=== PATIENT | male | born 1995 | race Caucasian/White ===

== ENCOUNTER 2022-12-16 23:01 | Inpatient (IN) | payer MEDICAID ==
[~2022-12-16] VITALS: Ht 200.7 cm; Wt 86.2 kg
[2022-12-17 00:36] LABS: ANION GAP 16 mmol/L (8-16); CALCIUM, TOTAL 8.8 mg/dL (8.8-10.5); CARBON DIOXIDE 26 mmol/L (22-29); CHLORIDE 105 mmol/L (98-107); CREATININE 1.12 mg/dL (0.60-1.30); GLOMERULAR FILTR. RATE CALC > 60 mL/min (>60); GLUCOSE,RANDOM 99 mg/dL (70-110); POTASSIUM 3.6 mmol/L (3.5-5.1); SODIUM SERUM 147 mmol/L (136-145)
[2022-12-17 00:37] LABS: BASOPHILS % (AUTO) 0.8 % (0.0-2.0); EOSINOPHILS % (AUTO) 1.5 % (1.0-6.0); HEMATOCRIT 43.9 % (41-53); LYMPHOCYTES # (AUTO) 1.7 K/uL (1.0-4.8); LYMPHOCYTES % (AUTO) 32.3 % (22.0-44.0); MEAN CORPUSCULAR HEMOGLOBIN 31.5 pg (26.0-34.0); MEAN CORPUSCULAR HGB CONC 34.1 G/dL (31.0-37.0); MEAN CORPUSCULAR VOLUME 92 fL (80-100); MONOCYTES # (AUTO) 0.5 K/uL (0.1-1.0); MONOCYTES % (AUTO) 10.3 % (2.0-9.0); NEUTROPHILS # (AUTO) 2.9 K/uL (1.8-7.7); NEUTROPHILS % (AUTO) 55.1 % (40.0-70.0); PLATELET COUNT (AUTO) 232 K/uL (150-450); RED BLOOD CELL COUNT(AUTO) 4.75 MIL/uL (4.50-5.90); RED CELL DISTRIBUTION WIDTH 14.6 % (11.5-14.5)
[2022-12-17 00:42] LABS: ALANINE AMINOTRANSFERASE 30 U/L (12-78); ALBUMIN 4.2 g/dL (3.4-5.0); ALKALINE PHOSPHATASE 45 U/L (46-116); ASPARTATE AMINOTRANSFERASE 28 U/L (15-37); BILIRUBIN,TOTAL 0.4 mg/dL (0.1-1.0); TOTAL PROTEIN, SERUM 7.8 g/dL (6.4-8.2)
[2022-12-17] MEDS ORDERED: HALOPERIDOL 5 MG TABLET PO PRN (01:45)
[2022-12-17 06:11] LABS: APPEARANCE,URINE CLEAR (CLEAR); BILIRUBIN,URINE NEGATIVE (NEGATIVE); GLUCOSE, URINE (UA) NEGATIVE (NEGATIVE); KETONES,URINE NEGATIVE (NEGATIVE); LEUKOCYTE ESTERASE ,URINE NEGATIVE (NEGATIVE); NITRATE,URINE NEGATIVE (NEGATIVE); OCCULT BLOOD,URINE NEGATIVE (NEGATIVE); SPECIFIC GRAVITIY, URINE 1.018 (1.003-1.030); UROBILINOGEN,URINE <=1.0 mg/dL (<=1.0)
[2022-12-17 06:14] LABS: PROTEIN,URINE NEGATIVE (NEGATIVE)
[2022-12-17 06:31] LABS: AMPHET/METH SCREEN,URINE NEGATIVE (NEGATIVE); BARBITURATE SCREEN, URINE NEGATIVE (NEGATIVE); BENZODIAZEPINES SCREEN,URINE NEGATIVE (NEGATIVE); CANNABINOID SCREEN,URINE POSITIVE (NEGATIVE); COCAINE SCREEN,URINE NEGATIVE (NEGATIVE); METHADONE SCREEN, URINE NEGATIVE (NEGATIVE); OPIATE SCREEN,URINE NEGATIVE (NEGATIVE); PHENCYCLIDINE SCREEN,URINE NEGATIVE (NEGATIVE)
[2022-12-17 11:45] LABS: COVID AG,FIA SOURCE NASAL SWAB
[2022-12-17 15:07] VITALS: BP 141/92; PULSE 88; RESP 18; TEMP 98; O2SAT 98
[2022-12-17] MEDS: LORazepam 1 MG TABLET PO PRN ×2 (15:37→21:00)
[2022-12-17 20:20] VITALS: BP 128/75; PULSE 94; RESP 18; TEMP 97.5; O2SAT 96
[2022-12-17] MEDS: ZOLPIDEM TARTRATE 10 MG TABLET PO PRN (21:00)
[2022-12-18 08:45] VITALS: BP 148/98; PULSE 91; RESP 19; TEMP 97.6; O2SAT 93
[2022-12-18] MEDS: LORazepam 1 MG TABLET PO PRN (09:11)
[2022-12-18] MEDS: SERTRALINE HCL 50 MG TABLET PO SCH (15:02)
[2022-12-18] MEDS: LORazepam 2 MG TABLET PO PRN (15:53)
[2022-12-18 20:20] VITALS: BP 131/82; PULSE 85; RESP 18; TEMP 97.6; O2SAT 97
[2022-12-18] MEDS: ZOLPIDEM TARTRATE 10 MG TABLET PO PRN (21:44)
[2022-12-19] MEDS: SERTRALINE HCL 50 MG TABLET PO SCH (08:17)
[2022-12-19 08:26] VITALS: BP 132/85; PULSE 92; RESP 18; TEMP 98; O2SAT 96
[2022-12-19] MEDS: LORazepam 2 MG TABLET PO PRN ×2 (09:19→20:00)
[2022-12-19 20:54] VITALS: BP 133/87; PULSE 83; RESP 19; TEMP 98.1; O2SAT 96
[2022-12-19] MEDS: ZOLPIDEM TARTRATE 10 MG TABLET PO PRN (21:24)
[2022-12-20 08:06] LABS: ANION GAP 5 mmol/L (8-16); CALCIUM, TOTAL 9.3 mg/dL (8.8-10.5); CARBON DIOXIDE 33 mmol/L (22-29); CHLORIDE 100 mmol/L (98-107); CREATININE 1.11 mg/dL (0.60-1.30); GLOMERULAR FILTR. RATE CALC > 60 mL/min (>60); GLUCOSE,RANDOM 91 mg/dL (70-110); SODIUM SERUM 138 mmol/L (136-145)
[2022-12-20] MEDS: SERTRALINE HCL 50 MG TABLET PO SCH (08:14)
[2022-12-20 08:18] VITALS: BP 116/73; PULSE 63; RESP 17; TEMP 97.7; O2SAT 95
[2022-12-20] MEDS: LORazepam 2 MG TABLET PO PRN (11:14)
[2022-12-20] MEDS ORDERED: SERT-158 PO (13:05)
[2022-12-20] MEDS ORDERED: SERT-439 PO (13:12)
== END 2022-12-20 14:55 | disposition home or self-care (01) | DRG 751 ==
LOC: EMS 23:02 → B2S 12-17 13:56
PROVIDERS: ADMIT Psychiatry & Neurology Psychiatry; ATTEND Psychiatry & Neurology Psychiatry
DX: F33.2 Major depressive disorder, recurrent severe without psychotic features (principal); E87.1 Hypo-osmolality and hyponatremia; R45.851 Suicidal ideations; Z20.822 Contact with and (suspected) exposure to COVID-19; F10.129 Alcohol abuse with intoxication, unspecified; F12.10 Cannabis abuse, uncomplicated; G47.00 Insomnia, unspecified
CPT/HCPCS: 80048; 80053; 80307; 81003; 85025; 99285; G0480